=== PATIENT | male | born 1955 | race Asian ===

== ENCOUNTER 2017-07-22 23:50 | Inpatient (IN) | payer OTHER ==
[~2017-07-22] VITALS: Ht 167.6 cm; Wt 69.9 kg
--- NOTE | 2017-07-22 23:55 | NUR ---
PT BIB BLS. TAKEN TO BED 2
[2017-07-23] VITALS (15 sets, daily range): BP systolic 90–132; BP diastolic 56–88
[2017-07-23] MEDS ORDERED: VANCOMYCIN 1,000 MG in DEXTROSE 5% 250 ML IV ONE (00:20)
[2017-07-23] MEDS ORDERED: LEVOFLOXACIN 750 MG/D5W PREMIX 150 ML IV ONE (00:20)
--- NOTE | 2017-07-23 00:20 | NUR ---
PT BIB AMB C/O SOB, COUGH, PALE SKIN WEAK/DIZZY A 1DAY. DX 1 WEEK AGO WITH PNA. PT CAN NOT RECALL HOME MEDS/DOSE AT THIS TIME.
[2017-07-23] MEDS ORDERED: VANCOMYCIN 1,000 MG VIAL ONE (00:23)
[2017-07-23] MEDS ORDERED: IBUPROFEN 800 MG TAB ONE (00:25)
[2017-07-23 00:48] LABS: APPEARANCE,URINE CLEAR (CLEAR); BILIRUBIN,URINE NEGATIVE (NEGATIVE); BLOOD, URINE NEGATIVE (NEGATIVE); COLOR,URINE YELLOW (YELLOW); LEUKOCYTE ESTERASE ,URINE NEGATIVE (NEGATIVE); NITRITE, URINE NEGATIVE (NEGATIVE); UGLUCOSE NEGATIVE (NEGATIVE)
--- NOTE | 2017-07-23 00:55 | NUR ---
PT BIBA RR EVEN AND LABORED, CHEST RISE IS SYMMETRICAL, BS DIMINSHED THROUGH OUT. PER [facility] PT HAS NO PMH, NKA. WAS DIAGNOSED W/ PNUMONIA LAST WEEK AND IS TAKING ABXS. PT IS AWAKE AND ALERT X1 TO NAME, PT CONFUSED AND DELAYED SPEECH.
--- NOTE | 2017-07-23 01:01 | NUR ---
BLOOD SENT TO LAB, O2 3L VIA N/C ON.
--- NOTE | 2017-07-23 01:18 | NUR ---
Patient appears to be resting comfortably in bed. Vital Signs within normal limits. Respirations even and unlabored.
--- NOTE | 2017-07-23 01:23 | NUR ---
PT SENT TO CT WITH TECH AAOX4 AT THIS TIME.
[2017-07-23 01:32] LABS: ANION GAP 16.3 (8-16); CREATININE 1.2 mg/dL (0.7-1.3); POTASSIUM 4.3 mmol/L (3.5-5.1); TOTAL BILIRUBIN 0.6 mg/dL (0.0-1.0)
[2017-07-23 01:33] LABS: ALBUMIN 1.5 g/dL (3.4-5.0)
[2017-07-23 01:35] LABS: MEAN CORPUSCULAR HEMOGLOBIN 32 pg (27-31); MEAN CORPUSCULAR HGB CONC 35 g/dL (33-37); MEAN CORPUSCULAR VOLUME 91 fL (80-94); RED BLOOD CELL COUNT(AUTO) 1.34 MIL/uL (4.20-6.10); RED CELL DISTRIBUTION WIDTH 13.8 % (11.6-13.7)
[2017-07-23 01:36] LABS: HEMOGLOBIN 4.3 g/dL (12.0-18.0)
[2017-07-23 01:37] LABS: HEMATOCRIT 12.2 % (36-52); PLATELET COUNT (AUTO) 535 K/uL (140-450); WHITE BLOOD COUNT (AUTO) 24.1 K/uL (4.8-10.8)
[2017-07-23 01:38] LABS: LYMPHOCYTES % (MANUAL) 7 % (20-46); MONOCYTES % (MANUAL) 4 % (5-12)
[2017-07-23] MEDS ORDERED: NACL 0.9% 1,000 ML IV ONE ×2 (02:00→03:20)
[2017-07-23] MEDS ORDERED: FAMOTIDINE 20 MG/2 ML VIAL IVP ONE (02:00)
[2017-07-23] MEDS ORDERED: NACL 0.9% 2,000 ML IV ONE (02:55)
[2017-07-23] MEDS ORDERED: MORPHINE SULFATE 2 MG/ML SYR IVP PRN (03:00)
[2017-07-23] MEDS ORDERED: ACETAMINOPHEN 325 MG TAB PO PRN (03:00)
[2017-07-23] MEDS ORDERED: ONDANSETRON 4 MG/2 ML VIAL IVP PRN (03:00)
[2017-07-23] MEDS ORDERED: LORazepam 2 MG/ML VIAL IVP PRN (03:00)
[2017-07-23] MEDS ORDERED: HYDROcodone/APAP 5/325 MG 1 TAB TAB PO PRN ×2 (03:00)
--- NOTE | 2017-07-23 03:10 | NUR ---
PT ON ICU HOLD IN ER PRE HOUSE NEEL MCNEAL.
[2017-07-23 03:44] LABS: PROTHROMBIN TIME 10.7 secs (10.8-13.4)
[2017-07-23 04:00] LABS: BARBITURATE, URINE NEG. ng/ml (NEG <=200); BENZODIAZEPINE, URINE NEG. ng/mL (NEG <=200); CANNABINOID, URINE NEG. ng/mL (NEG <=50); COCAINE, URINE NEG. ng/mL (NEG <=300); OPIATE, URINE POS. ng/mL (NEG <=2000); PHENCYCLIDINE SCREEN,URINE NEG. ng/mL (NEG <=25)
--- NOTE | 2017-07-23 04:30 | NUR ---
TRANSFUSION OF PACKED CELLS STARTED, VSS
--- NOTE | 2017-07-23 04:30 | NUR ---
Consent signed per POLICY agreeing to administration of blood. Blood has been type and crossmatched. Blood sent from blood bank. Information on unit of blood checked against patient wristband at bedside by two nurses. All information matches. Patient or responsible green party informed of potential complications associated with blood transfusion. Informed of possible transfusion reaction symptoms. Aware of need to notify nurse at once of itching, shortness of breath, flushing, feeling of impending doom, or other symptoms not previously present. Vital signs taken within 5 minutes prior to initiation of transfusion. RN will remain with patient for first 15 minutes of transfusion at which time vital signs will be re-assessed.
--- NOTE | 2017-07-23 05:30 | NUR ---
PT IS RESTING COMFORTABLE IN BED, NO REACTIONS TO BLOOD TRANSFUSION NOTED, VSS STABLE.
--- NOTE | 2017-07-23 06:00 | NUR ---
PT RESTING COMFORTABLE IN BED, WILL CONTINUE TO MONITOR.
[2017-07-23] MEDS: NACL 0.9% 1,000 ML IV SCH ×3 (06:26→17:00)
--- NOTE | 2017-07-23 07:30 | NUR ---
RECEIVED PT FROM ER VIA [employer]. A/O X2. ABLE TO VERBALIZE NEEDS. PT ON STABLE CONDITION. NO ACUTE DISTRESS. PUPLIS REACTIVE TO LIGHT. LUNGS SOUND CLEAR ON AUSCULTATION. PERIPHERAL LINES ON LEFT AC 18G, LEFT WRIST 18 G. INTACT. NS RUNNING AT 100ML/HR AND BT AT 100 ML/HR. NO REACTION R/T BT NOTED. ABDOMEN ROUND, SOFT AND NON-TENDER. ACTIVE BOWEL SOUND PRESENT ON AUSCULTATION. SKIN DRY AND WARM TO ROUCH. INTACT. DENIES PAIN AT THIS TIME. KEPT PT ON BEDSIDE MONITORING. CALL LIGHT WITHIN REACH,BED IN LOW POSITION, LOCKED. WILL CONTINUE TO MONITOR.
--- NOTE | 2017-07-23 07:30 | NUR ---
Patient will be admitted to care of DR PÉREZ. Admited to ICU. Will go to room 4. Belongings list completed. Report to MIGUELITO. BLOOD PRODUCT TO FINISH INFUSING ON FLOOR, PT HAS NO SIGNS OF REACTION TO BLOOD PRODUCT ON ADMISSION.
[2017-07-23] MEDS: IPRATROPIUM 0.02% 0.5 MG/2.5 ML NEBU IH SCH ×3 (08:03→19:44)
[2017-07-23] MEDS: ALBUTEROL 0.083% 2.5 MG/3 ML NEBU IH SCH ×3 (08:03→19:44)
--- NOTE | 2017-07-23 08:20 | NUR ---
PATIENT HAS BEEN SCREENED AND CATEGORIZED MODERATE NUTRITION RISK. PATIENT WILL BE SEEN WITHIN 3-5 DAYS OF ADMISSION. 07/25/17-07/27/[address]
--- NOTE | 2017-07-23 08:22 | NUR ---
BT STARTED. PT ON STABLE CONDITION. T 97.7, P 87 R 18 BP 90/61.
--- NOTE | 2017-07-23 08:37 | NUR ---
PT ON STABLE CONDITION. NO RESPIRATORY DISTRESS. NO BT REACTION NOTED. NO CAHNGE IN LOC. T 97.4 P 87 R 16 BP 94/68. WILL CONTINUE TO MONITOR.
--- NOTE | 2017-07-23 08:52 | NUR ---
PT RESTING IN BED COMFORTABLY. DENIES PAIN. NO REACTION R/T BT NOTED. NO RESPIRATORY DISTRESS NOTED. NO CHANGE IN LOC. VS T 97.6 P 86 R 17 BP 99/56. ON CONTINUOUS MONITORING.
[2017-07-23] MEDS: PANTOPRAZOLE 40 MG INJ VIAL IVP SCH ×2 (09:07→22:09)
--- NOTE | 2017-07-23 10:40 | NUR ---
DR. GRIGGS AND TEAM IN FOR ULTRASOUND GUIDED THORACENTESIS. UNABLE TO DO THE PROCEDURE BECAUSE OF NOT ENOUGH FLUID IN RIGHT LUNG AND NO FLUID ON LEFT LUNG. KEPT PT ON COMFORTABLE POSITION. NO C/O SOB, NO CHEST PAIN. NO RESPIRATORY DISTRESS NOTED. PT ON BT. NO REACTION R/T BT NOTED. PT ON CONTINUOUS MONITORING.
--- NOTE | 2017-07-23 11:10 | NUR ---
SEEN BY DR. ABDALLA. WILL FOLOW UP ON ORDER.
[2017-07-23] MEDS: AMPICILLIN/SULBACTAM 3 GM in NACL 0.9% 100 ML IV SCH ×3 (12:54→23:47)
[2017-07-23] MEDS: SENNA 8.6 MG TAB PO SCH ×2 (13:31→16:37)
--- NOTE | 2017-07-23 13:32 | NUR ---
ADMINISTERED MEDICATION PER ORDER. TOLERATING WELL. NO RESPIRATORY DISTRESS. VS WNL. NO CHANGE IN LOC. SON AT BEDSIDE. WILL CONTINUE TO MONITOR.
[2017-07-23 15:04] LABS: EOSINOPHILS # (AUTO) 0.1 K/uL (0-0.4); EOSINOPHILS % (AUTO) 0.3 % (0.0-4.0)
[2017-07-23 15:07] LABS: BASOPHILS % (AUTO) 0.1 % (0.0-2.0); MEAN CORPUSCULAR HEMOGLOBIN 30 pg (27-31); MEAN CORPUSCULAR HGB CONC 34 g/dL (33-37); MEAN CORPUSCULAR VOLUME 89 fL (80-94); MONOCYTES # (AUTO) 0.6 K/uL (0.8-1.0); MONOCYTES % (AUTO) 3.3 % (1.7-9.3); NEUTROPHILS # (AUTO) 17.5 K/uL (1.8-7.7); NEUTROPHILS % (AUTO) 91.3 % (42.2-75.2); PLATELET COUNT (AUTO) 477 K/uL (140-450); RED BLOOD CELL COUNT(AUTO) 2.34 MIL/uL (4.20-6.10); RED CELL DISTRIBUTION WIDTH 14.7 % (11.6-13.7); WHITE BLOOD COUNT (AUTO) 19.2 K/uL (4.8-10.8)
--- NOTE | 2017-07-23 15:21 | NUR ---
CM NOTE INITIAL REVIEW FAXED TO [facility] (FAX# [phone], ATTN: GATITO #[phone]) AND [facility] (FAX# [phone], C: [phone])
--- NOTE | 2017-07-23 16:00 | NUR ---
PT RESTING IN BED, AWAKE. NO RESPIRATORY DISTRESS NOTED. SR ON MONITOR. NO CHANGE IN LOC. WILL CONTINUE TO MONITOR.
[2017-07-23 16:31] LABS: CREATINE KINASE MB 0.9 ng/mL (0-3.6)
--- NOTE | 2017-07-23 18:20 | NUR ---
SEEN BY DR. KAPADIA. WILL FOLLOW UP ON ORDER.
--- NOTE | 2017-07-23 18:48 | NUR ---
PT RESTING IN BED COMFORTABLY. NO RESPIRATORY DISTRESS. NO CHANGE IN LOC. ON O2 AT 2 LTR/MIN VIA NC. SPO2 99%. FAMILY AT BEDSIDE. WILL CONTINUE TO MONITOR.
--- NOTE | 2017-07-23 19:30 | NUR ---
REPORT GIVEN TO NOC SHIFT RN FOR CONTINUITY OF CARE. PT ON STABLE CONDITION.
--- NOTE | 2017-07-23 19:31 | NUR ---
RECEIVED REPORT FROM AM SHIFT, ABBIE FARLEY. INITIAL ASSESSMENT COMPLETED. ALERT AWAKE ORIENTED. ATTACHED TO VEGETABLE PACKER, PULSE OXIMETER. 02 @ 3LPM VIA NASAL CANNULA AT THIS TIME. IVF ACCESS AT LEFT AC 18G IVF INFUSING AND LEFT WRIST 18G, ON GOING BLOOD TRANSFUSION. SCDS IN PLACE. BED IN LOW POSITION, SAFETY MEASURE ENSURE. CALL LIGHT WITHIN REACH. WILL CONTINUE TO MONITOR.
--- NOTE | 2017-07-23 20:15 | NUR ---
US TECH AT BEDSIDE. NEPHEW AT BEDSIDE.
--- NOTE | 2017-07-23 21:00 | NUR ---
FAMILY AT BEDSIDE, SON AT BEDSIDE UPDATED OF PATIENT'S CONDITION.
--- NOTE | 2017-07-23 21:30 | NUR ---
DR. MEDINA AT BEDSIDE, EVALUATING PATIENT.
--- NOTE | 2017-07-23 22:00 | NUR ---
PT HAD SMALL AMOUNT OF BLACK STOOL. WILL CONTINUE TO MONITOR.
[2017-07-23] MEDS: LACTULOSE 20 GM/30 ML UDC PO SCH (22:10)
--- NOTE | 2017-07-23 22:13 | NUR ---
3RD UNIT OF BLOOD TRANSFUSION COMPLETED. WILL START 4TH UNIT OF BLOOD TRANSFUSION.
--- NOTE | 2017-07-23 22:30 | NUR ---
4TH UNIT OF BLOOD TRANSFUSION STARTED VERIFIED TOGETHER WITH CHARGE NURSE, WILL CONTINUE TO MONITOR. PT HAD LARGE AMOUNT OF BLACK STOOL. WILL CONTINUE TO MONITOR.
[2017-07-24] VITALS (15 sets, daily range): BP systolic 98–130; BP diastolic 31–77
[2017-07-24] MEDS: LEVOFLOXACIN 500 MG/D5W PREMIX 100 ML IV SCH (00:58)
[2017-07-24] MEDS: IPRATROPIUM 0.02% 0.5 MG/2.5 ML NEBU IH SCH ×3 (01:00→13:08)
[2017-07-24] MEDS: ALBUTEROL 0.083% 2.5 MG/3 ML NEBU IH SCH ×3 (01:00→13:08)
--- NOTE | 2017-07-24 02:05 | NUR ---
BLOOD TRANSFUSION COMPLETED. NO SIGNS OF DISTRESS NOTED. PT RESTING. WILL CONTINUE TO MONITOR.
[2017-07-24 04:50] LABS: HEMATOCRIT 27.6 % (36-52); HEMOGLOBIN 9.1 g/dL (12.0-18.0); MEAN CORPUSCULAR HEMOGLOBIN 30 pg (27-31); MEAN CORPUSCULAR HGB CONC 33 g/dL (33-37); MEAN CORPUSCULAR VOLUME 90 fL (80-94); PLATELET COUNT (AUTO) 437 K/uL (140-450); RED BLOOD CELL COUNT(AUTO) 3.07 MIL/uL (4.20-6.10); RED CELL DISTRIBUTION WIDTH 14.2 % (11.6-13.7); WHITE BLOOD COUNT (AUTO) 20.3 K/uL (4.8-10.8)
--- NOTE | 2017-07-24 05:15 | NUR ---
PT REFUSED MORNING CARE. HE SAID, "I AM OK."
[2017-07-24] MEDS: AMPICILLIN/SULBACTAM 3 GM in NACL 0.9% 100 ML IV SCH (05:39)
[2017-07-24 06:39] LABS: LYMPHOCYTES % (MANUAL) 3 % (20-46); MONOCYTES % (MANUAL) 5 % (5-12)
[2017-07-24 06:54] LABS: ALBUMIN 1.5 g/dL (3.4-5.0); ANION GAP 15.4 (8-16); CARBON DIOXIDE 22.6 mmol/L (21-32); CREATININE 0.8 mg/dL (0.7-1.3); TOTAL BILIRUBIN 0.7 mg/dL (0.0-1.0)
[2017-07-24 07:05] LABS: CREATINE KINASE MB 2.4 ng/mL (0-3.6)
--- NOTE | 2017-07-24 07:12 | NUR ---
REPORT GIVEN TO BEST SQUIRES RN FOR CONTINUITY OF CARE. NO SIGNS OF DISTRESS NOTED AT THIS TIME.
--- NOTE | 2017-07-24 08:00 | NUR ---
PATIENT IS GOING TO HAVE EGD TODAY, AND IS NPO THIS MORNING. ON ASSESSMENT PATIENT HAS SLIGHT PAIN LEFT LOWER CHEST, AND RECEIVING BREATHING TX. PAIN RESOLVES AFTER BREATHING TX. RAMON TANNER RN
--- NOTE | 2017-07-24 09:30 | NUR ---
PATIENT SON AT BEDSIDE, AND PATIENT INCONT STOOL, CLEANED, FULL BATH, AND COMPLETE LINEN CHANGE. PATIENT SBP 77, AND HOB LOWERED, AND RETAKEN, AND SBP TO 98. RAMON TANNER RN
[2017-07-24 09:37] LABS: MAGNESIUM 2.2 mg/dL (1.8-2.4)
[2017-07-24] MEDS: PANTOPRAZOLE 40 MG INJ VIAL IVP SCH ×2 (09:52→20:41)
[2017-07-24] MEDS: SENNA 8.6 MG TAB PO SCH (09:52)
[2017-07-24] MEDS: NACL 0.9% 1,000 ML IV SCH ×2 (09:53→22:45)
[2017-07-24] MEDS: LACTULOSE 20 GM/30 ML UDC PO SCH ×2 (09:53→20:45)
--- NOTE | 2017-07-24 10:00 | NUR ---
PATIENT RESTING QUIETLY IN BED WITH SON AT BEDSIDE. NO CO PAIN. RAMON TANNER RN
--- NOTE | 2017-07-24 12:00 | NUR ---
PATIENT RESTING QUIETLY IN BED, VSS, AFEBRILE. SR ON MONITOR WITHOUT ECTOPY. NPO FOR EGD PROCEDURE. RAMON TANNER RN
[2017-07-24] MEDS ORDERED: MIDAZOLAM 2 MG/2 ML VIAL ONE ×2 (13:48)
[2017-07-24] MEDS ORDERED: diphenhydrAMINE 50 MG/ML VIAL ONE (13:48)
[2017-07-24] MEDS ORDERED: fentaNYL 0.05 MG/ML VIAL ONE (13:48)
--- NOTE | 2017-07-24 14:37 | NUR ---
GI PROCEDURE ENDOSCOPY STARTED, DR ABDALLA AT BEDSIDE - VSS, SR ON MONITOR. RESP EVEN AND UNLABORED WITHOUT DISTRESS. RAMON TANNER RN
[2017-07-24] MEDS ORDERED: VANCOMYCIN PER PHARMACY MC PRN (14:55)
--- NOTE | 2017-07-24 14:55 | NUR ---
PROCEDURE COMPLETE, AND PATIENT WITH STOOL INCONT, COMPLETE BATH, AND LINENS CHANGED. 02 2L NC. HE IS SEDATED, AND SOMEWHAT CONFUSED. NO CO PAIN. RAMON TANNER RN
--- NOTE | 2017-07-24 15:30 | NUR ---
PATIENT FAMILY AT BEDSIDE, AND UPDATED ON PRESENT CONDITION, AND THAT PROCEDURE COMPLETE AND THAT DR ABDALLA WILL GIVE THEM FURTHER DETAILED INFORMATION REGARDING GI ISSUES. RAMON TANNER RN
--- NOTE | 2017-07-24 16:35 | NUR ---
DR SANTIAGO VISITS PATIENT CONFERS WITH FAMILY AT BEDSIDE, AND ORDERS WRITTEN. RAMON TANNER RN
--- NOTE | 2017-07-24 16:52 | NUR ---
PATIENT INCONT STOOL, AND COMPLETE BATH, AND LINEN CHANGED. RAMON TANNER RN
--- NOTE | 2017-07-24 17:27 | NUR ---
FAXED CONCURRENT REVIEW TO [facility] [phone] PHONE GATITO [phone]
--- NOTE | 2017-07-24 19:30 | NUR ---
PATIENT TRANSFERRED TO [address] AND REPORT ENDORSED TO THE RN RECEIVING THE PATIENT BY ASAF LEIVACERTIFIED ALCOHOL DRUG COUNSELOR NURSE. RAMON TANNER RN
--- NOTE | 2017-07-24 19:35 | NUR ---
RECEIVED REPORT AT BEDSIDE FROM ICU NURSE. PT A/OX4, ON 2L O2 VIA NASAL CANNULA. PT IS ON BEDREST. PT HAS IV TO LEFT FOREARM 18G, AND LEFT WRIST 18G. SKIN INTACT. SAFETY PRECAUTIONS IN PLACE. UPDATED BOARD. VITAL SIGNS WITHIN NORMAL LIMITS. PT IN STABLE CONDITION, NO SIGNS OF DISTRESS NOTED. BED IN LOW POSITION, CALL LIGHT WITHIN REACH. WILL CONTINUE TO MONITOR.
[2017-07-24] MEDS: FERROUS GLUCONATE 324 MG TAB PO SCH (20:00)
[2017-07-24] MEDS: VANCOMYCIN 1,250 MG in DEXTROSE 5% 250 ML IV SCH (20:00)
--- NOTE | 2017-07-24 20:00 | NUR ---
DID NOT ADMINISTER VANCOCIN OR UNASYN BECAUSE MEDICATIONS WERE SCHEDULED AT 17:00 AND 18:00 AND PT DID NOT ARRIVE TO UNIT UNTIL 19:35.
[2017-07-24] MEDS: SUCRALFATE 1 GM TAB PO SCH (20:41)
--- NOTE | 2017-07-24 20:45 | NUR ---
ADMINISTERED SCHEDULED MEDICATIONS, PT TOLERATED WELL. PT IN STABLE CONDITION, NO SIGNS OF DISTRESS NOTED. BED IN LOW POSITION, CALL LIGHT WITHIN REACH. WILL CONTINUE TO MONITOR.
[2017-07-24] MEDS: ALBUTEROL SULFATE/IPRATROPIU 3 ML SOL IH SCH (21:05)
[2017-07-25] VITALS (7 sets, daily range): BP systolic 115–130; BP diastolic 69–89
[2017-07-25] MEDS: SULBACTAM IV SCH ×5 (00:09→23:22)
[2017-07-25] MEDS: DEXTROSE 5% IV SCH ×5 (00:09→23:22)
[2017-07-25] MEDS: AMPICILLIN IV SCH ×5 (00:09→23:22)
--- NOTE | 2017-07-25 00:10 | NUR ---
SCHEDULED IVPB ABX NOW INFUSING, PT TOLERATING WELL. VITAL SIGNS WITHIN NORMAL LIMITS. PT IN STABLE CONDITION, NO SIGNS OF DISTRESS NOTED. BED IN LOW POSITION, CALL LIGHT WITHIN REACH. WILL CONTINUE TO MONITOR.
[2017-07-25] MEDS: ALBUTEROL SULFATE/IPRATROPIU 3 ML SOL IH SCH ×4 (00:58→18:55)
[2017-07-25] MEDS: LEVOFLOXACIN 500 MG/D5W PREMIX 100 ML IV SCH (01:00)
--- NOTE | 2017-07-25 01:00 | NUR ---
LEVAQUIN NOW INFUSING, PT TOLERATING WELL. PT RECEIVING BREATHING TREATMENT FROM RT. PT IN STABLE CONDITION, NO SIGNS OF DISTRESS NOTED. BED IN LOW POSITION, CALL LIGHT WITHIN REACH. WILL CONTINUE TO MONITOR.
--- NOTE | 2017-07-25 04:00 | NUR ---
VITAL SIGNS WITHIN NORMAL LIMITS. PT IN STABLE CONDITION, NO SIGNS OF DISTRESS NOTED. BED IN LOW POSITION, CALL LIGHT WITHIN REACH. WILL CONTINUE TO MONITOR.
[2017-07-25] MEDS: VANCOMYCIN 1,250 MG in DEXTROSE 5% 250 ML IV SCH ×2 (05:04→16:07)
[2017-07-25 06:28] LABS: BASOPHILS # (AUTO) 0.1 K/uL (0.00-0.22); BASOPHILS % (AUTO) 0.3 % (0.0-2.0); EOSINOPHILS # (AUTO) 0.1 K/uL (0-0.4); EOSINOPHILS % (AUTO) 0.3 % (0.0-4.0); HEMATOCRIT 27.6 % (36-52); HEMOGLOBIN 8.8 g/dL (12.0-18.0); LYMPHOCYTES # (AUTO) 0.7 K/uL (2.0-11.5); LYMPHOCYTES % (AUTO) 3.8 % (20.5-51.1); MEAN CORPUSCULAR HEMOGLOBIN 29 pg (27-31); MEAN CORPUSCULAR HGB CONC 32 g/dL (33-37); MEAN CORPUSCULAR VOLUME 90 fL (80-94); MONOCYTES # (AUTO) 0.5 K/uL (0.8-1.0); MONOCYTES % (AUTO) 2.9 % (1.7-9.3); NEUTROPHILS # (AUTO) 16.9 K/uL (1.8-7.7); NEUTROPHILS % (AUTO) 92.7 % (42.2-75.2); PLATELET COUNT (AUTO) 435 K/uL (140-450); RED BLOOD CELL COUNT(AUTO) 3.06 MIL/uL (4.20-6.10); RED CELL DISTRIBUTION WIDTH 14.4 % (11.6-13.7); WHITE BLOOD COUNT (AUTO) 18.3 K/uL (4.8-10.8)
--- NOTE | 2017-07-25 07:28 | NUR ---
ENDORSED PT IN STABLE CONDITION TO DAY SHIFT RN FOR CONTINUITY OF CARE.
--- NOTE | 2017-07-25 07:30 | NUR ---
ENDORSEMENT RECEIVED FROM CABIN SUPERVISOR NURSE. PATIENT IS AWAKE, ALERT. RESPIRATION EVEN, UNLABOR ON 3L NC. SKIN DRY AND WARM. IV PATENT AND INTACT. DENIED PAIN, SOB AT THIS TIME. PLAN OF CARE WAS DISCUSSED WITH PATIENT AND FAMILY. BED AT LOW POSITION, CALL LIGHT WITHIN REACH.
[2017-07-25 07:50] LABS: ANION GAP 10.7 (8-16); CARBON DIOXIDE 24.8 mmol/L (21-32); CREATININE 0.8 mg/dL (0.7-1.3); POTASSIUM 3.5 mmol/L (3.5-5.1)
[2017-07-25] MEDS: PANTOPRAZOLE 40 MG INJ VIAL IVP SCH ×2 (08:53→21:35)
[2017-07-25] MEDS: LACTULOSE 20 GM/30 ML UDC PO SCH ×2 (09:00→21:35)
[2017-07-25] MEDS: SUCRALFATE 1 GM TAB PO SCH ×4 (09:09→21:35)
[2017-07-25] MEDS: FERROUS GLUCONATE 324 MG TAB PO SCH ×2 (09:09→16:07)
--- NOTE | 2017-07-25 10:00 | NUR ---
PATIENT IS AWAKE, ALERT. RESPIRATION EVEN, UNLABOR ON 3L NC. DENIED SOB, CP AT THIS TIME. FAMILY AT BEDSIDE. CALL LIGHT WITHIN REACH
--- NOTE | 2017-07-25 12:30 | NUR ---
PATIENT IS SLEEPING COMFORTABLY. RESPIRATION EVEN, UNLABOR ON 2L NC. DENIED SOB AT THIS TIME. MED WAS GIVEN PER ORDER. FAMILY AT BEDSIDE. CALL LIGHT WITHIN REACH
--- NOTE | 2017-07-25 16:00 | NUR ---
PATIENT IS SLEEPING COMFORTABLY. RESPIRATION EVEN, UNLABOR ON 2L NC. DENIED SOB AT THIS TIME. FAMILY AT BEDSIDE. CALL LIGHT WITHIN REACH. VS WAS TAKEN
--- NOTE | 2017-07-25 18:44 | NUR ---
PATIENT IS AWAKE, ALERT. RESPIRATION EVEN, UNLABOR ON 2L NC. DENIED SOB AT THIS TIME. IV PATENT AND INTACT. MED WAS GIVEN PER ORDER. CALL LIGHT WITHIN REACH
[2017-07-25] MEDS: NACL 0.9% 1,000 ML IV SCH (19:04)
--- NOTE | 2017-07-25 19:18 | NUR ---
RECEIVED FROM AM RN IN BED AWAKE AND WITH FAMILY MEMBERS VISITING. DJIBOUTIAN SPEAKING AND UNDERSTANDS A LITTLE BIT OF NEPALI. ABLE TO VERBALIZE SIMPLE NEEDS. PT. DX. OF PNA. AFEBRILE. CARE PLANS DISCUSSED WITH HIM. RE-ORIENTED TO CALL LIGHT USE FOR HELP AND IF WITH PAIN.
--- NOTE | 2017-07-25 19:18 | NUR ---
ENDORSEMENT GIVEN TO THE BOARD HAMMER OPERATOR NURSE. PATIENT IS STABLE AT THIS TIME
[2017-07-25 22:34] LABS: FERRITIN 1611 ng/mL (30-400)
--- NOTE | 2017-07-25 22:46 | NUR ---
SLEEPING AT THIS TIME. NO RESTLESSNESS. SON AT BEDSIDE WATCHING PT. FOR THE NIGHT. ENCOURAGED TO CALL FOR ANY PAIN HE MIGHT HAVE. TELEMETRY MONITORING.
--- NOTE | 2017-07-25 23:49 | NUR ---
AWAKE AT THIS TIME. SON STILL AT BEDSIDE AND MD SANTIAGO IN HERE TO SEE PT. WITH ORDER FOR PHYSICAL THERAPIST FOR TOMORROW.
--- NOTE | 2017-07-26 | NUR ---
SLEEPING. NO RESTLESSNESS. TELEMETRY MONITORING. CALL LIGHT WITH IN REACH. SON AT BEDSIDE WATCHING A MOVIE AT HIS OWN COMPUTER. NO COMPLAINTS DONE.
[2017-07-26] MEDS: ALBUTEROL SULFATE/IPRATROPIU 3 ML SOL IH SCH ×4 (01:04→19:10)
[2017-07-26] MEDS: LEVOFLOXACIN 500 MG/D5W PREMIX 100 ML IV SCH (01:29)
[2017-07-26 04:00] VITALS: BP 130/78
--- NOTE | 2017-07-26 04:00 | NUR ---
PT. HAD A BIG LIQUIDY STOOL. KEPT CLEAN AND DRY. CALL LIGHT WITH IN REACH. NO SOB. TELEMETRY MONITORING. ENCOURAGED TO CALL FOR ANY HELP THEY NEED OR IF IN PAIN.
[2017-07-26 04:21] LABS: BASOPHILS # (AUTO) 0.3 K/uL (0.00-0.22); BASOPHILS % (AUTO) 1.9 % (0.0-2.0); EOSINOPHILS % (AUTO) 0.2 % (0.0-4.0); HEMATOCRIT 28.5 % (36-52); HEMOGLOBIN 9.2 g/dL (12.0-18.0); LYMPHOCYTES # (AUTO) 0.7 K/uL (2.0-11.5); LYMPHOCYTES % (AUTO) 3.9 % (20.5-51.1); MEAN CORPUSCULAR HEMOGLOBIN 29 pg (27-31); MEAN CORPUSCULAR HGB CONC 32 g/dL (33-37); MEAN CORPUSCULAR VOLUME 90 fL (80-94); MONOCYTES # (AUTO) 0.4 K/uL (0.8-1.0); MONOCYTES % (AUTO) 2.4 % (1.7-9.3); NEUTROPHILS # (AUTO) 16.3 K/uL (1.8-7.7); PLATELET COUNT (AUTO) 417 K/uL (140-450); RED BLOOD CELL COUNT(AUTO) 3.18 MIL/uL (4.20-6.10); RED CELL DISTRIBUTION WIDTH 14.2 % (11.6-13.7); WHITE BLOOD COUNT (AUTO) 17.7 K/uL (4.8-10.8)
[2017-07-26 04:34] LABS: CARBON DIOXIDE 27.2 mmol/L (21-32); CREATININE 0.8 mg/dL (0.7-1.3); POTASSIUM 3.2 mmol/L (3.5-5.1)
[2017-07-26 05:02] LABS: NEUTROPHILS % (AUTO) 91.6 % (42.2-75.2)
[2017-07-26] MEDS: VANCOMYCIN 1,250 MG in DEXTROSE 5% 250 ML IV SCH (05:29)
[2017-07-26] MEDS: SULBACTAM IV SCH ×3 (05:30→18:54)
[2017-07-26] MEDS: DEXTROSE 5% IV SCH ×3 (05:30→18:54)
[2017-07-26] MEDS: AMPICILLIN IV SCH ×3 (05:30→18:54)
--- NOTE | 2017-07-26 06:34 | NUR ---
PT. AWAKE AT THIS TIME. SON LEFT AND CAME IN TO TAKE OVER. NO COMPLAINTS DONE. TELEMETRY MONITORING.
--- NOTE | 2017-07-26 07:18 | NUR ---
AWAKE AND ALERT. ENDORSED TO THE NEXT RN FOR CONTINUITY OF CARE.
--- NOTE | 2017-07-26 07:20 | NUR ---
ENDORSEMENT RECEIVED FROM FIRE APPARATUS SPRINKLER INSPECTOR NURSE. PATIENT IS AWAKE, ALERT. RESPIRATION EVEN, UNLABOR ON 2L NC. SKIN DRY AND WARM. DENIED SOB AT THIS TIME. IV PATENT AND INTACT. PLAN OF CARE WAS DISCUSSED WITH PATIENT AND FAMILY. BED AT LOW POSITION, CALL LIGHT WITHIN REACH.
[2017-07-26 08:00] VITALS: BP 128/75
[2017-07-26] MEDS: FERROUS GLUCONATE 324 MG TAB PO SCH ×2 (08:32→16:32)
[2017-07-26] MEDS: SUCRALFATE 1 GM TAB PO SCH ×4 (08:32→20:44)
[2017-07-26] MEDS: PANTOPRAZOLE 40 MG INJ VIAL IVP SCH ×2 (08:32→20:44)
[2017-07-26] MEDS: LACTULOSE 20 GM/30 ML UDC PO SCH (08:33)
--- NOTE | 2017-07-26 09:33 | NUR ---
PATIENT IS AWAKE, ALERT. RESPIRATION EVEN, UNLABOR ON 2L. MED WAS GIVEN PER ORDER. DENIED PAIN, SOB AT THIS TIME. CALL LIGHT WITHIN REACH
--- NOTE | 2017-07-26 10:37 | NUR ---
DR. NAVARRO WAS PAGED REGARDING PATIENT'S POTASSIUM LEVEL 3.3. WILL CONTINUE TO FOLLOW UP
[2017-07-26] MEDS ORDERED: POTASSIUM CHLORIDE 10 MEQ TABER PO PRN (11:15)
--- NOTE | 2017-07-26 11:18 | NUR ---
DR. SANTIAGO WAS MADE MEYER OF PATIENT'S POTASSIUM LEVEL 3.2, CA 7.5. WILL MEDICATE PER ORDER
--- NOTE | 2017-07-26 11:30 | NUR ---
PATIENT IS AWAKE, ALERT. RESPIRATION EVEN, UNLABOR ON 2L NC. DENIED SOB, DIZZINESS AT THIS TIME. FAMILY AT BEDSIDE. VS WAS TAKEN. MED WAS GIVEN PER ORDER. CALL LIGHT WITHIN REACH
[2017-07-26 12:00] VITALS: BP 130/71
[2017-07-26] MEDS: NACL 0.9% 1,000 ML IV SCH (13:04)
[2017-07-26] MEDS ORDERED: CALCIUM GLUCONATE 10% 1,000 MG in NACL 0.9% 50 ML IV SCH (14:00)
--- NOTE | 2017-07-26 14:14 | NUR ---
PATIENT AWAKE, ALERT. RESPIRATION EVEN, UNLABOR ON 2L NC. DENIED SOB AT THIS TIME. NOTIFIED DR. SANTIAGO FOR NICOTINE PATCH REQUEST. WILL CONTINUE TO FOLLOW UP
--- NOTE | 2017-07-26 15:49 | NUR ---
PATIENT IS AWAKE, ALERT. RESPIRATION EVEN, UNLABOR ON 2 L NC. DENIED OF SOB AT THIS TIME. CALL LIGHT WITHIN REACH.
[2017-07-26 16:00] VITALS: BP 138/71
[2017-07-26] MEDS: VANCOMYCIN 1,500 MG in DEXTROSE 5% 500 ML IV SCH (16:32)
--- NOTE | 2017-07-26 17:04 | NUR ---
DR. LIMA WAS MADE AWARE OF PATIENT ABNORMAL EKG, ADVISED TO FOLLOW UP WITH CONSERVATION POLICY ANALYST, ORDER WAS PLACED
--- NOTE | 2017-07-26 17:42 | NUR ---
PATIENT IS AWAKE, ALERT, EATING DINNER. RESPIRATION EVEN, UNLABOR ON 2L NC. DENIED SOB, PAIN AT THIS TIME. IV PATENT AND INTACT. CALL LIGHT WITHIN REACH.
[2017-07-26] MEDS: NICOTINE TRANSD SYS 14 MG/24 HR PATCH TD SCH (18:58)
--- NOTE | 2017-07-26 19:18 | NUR ---
ENDORSEMENT GIVEN TO THE CRM DYNAMICS DEVELOPER NURSE. PATIENT IS STABLE AT THIS TIME
--- NOTE | 2017-07-26 19:19 | NUR ---
RECEIVED REPORT FROM DAY NURSE, PT IN STABLE CONDITION. NO S/S OF DISTRESS NOTED. PT IS AAOX4, ON 2L O2 VIA NC. SKIN IS INTACT, IV TO THE LAC 18G AND L WRIST 18G PATENT AND INTACT, INFUSING WELL. SKIN IS WARM AND DRY TO TOUCH, COLOR WNL. ALL SAFETY PRECAUTIONS MET, CALL LIGHT WITHIN REACH, BOARD UPDATED, WILL CONTINUE TO MONITOR
[2017-07-26 20:00] VITALS: BP 142/75
[2017-07-27] VITALS: BP 135/83
[2017-07-27] MEDS: SULBACTAM IV SCH ×3 (00:16→12:44)
[2017-07-27] MEDS: DEXTROSE 5% IV SCH ×3 (00:16→12:44)
[2017-07-27] MEDS: AMPICILLIN IV SCH ×3 (00:16→12:44)
[2017-07-27] MEDS: ALBUTEROL SULFATE/IPRATROPIU 3 ML SOL IH SCH ×4 (00:26→19:03)
[2017-07-27] MEDS: LEVOFLOXACIN 500 MG/D5W PREMIX 100 ML IV SCH (01:54)
[2017-07-27 04:00] VITALS: BP 136/84
[2017-07-27] MEDS: VANCOMYCIN 1,500 MG in DEXTROSE 5% 500 ML IV SCH ×2 (04:55→16:37)
[2017-07-27 07:00] LABS: BASOPHILS % (AUTO) 0.2 % (0.0-2.0); EOSINOPHILS # (AUTO) 0.1 K/uL (0-0.4); EOSINOPHILS % (AUTO) 0.9 % (0.0-4.0); HEMATOCRIT 27.3 % (36-52); HEMOGLOBIN 9.3 g/dL (12.0-18.0); LYMPHOCYTES # (AUTO) 0.6 K/uL (2.0-11.5); LYMPHOCYTES % (AUTO) 3.8 % (20.5-51.1); MEAN CORPUSCULAR HEMOGLOBIN 31 pg (27-31); MEAN CORPUSCULAR HGB CONC 34 g/dL (33-37); MEAN CORPUSCULAR VOLUME 90 fL (80-94); MONOCYTES # (AUTO) 0.6 K/uL (0.8-1.0); MONOCYTES % (AUTO) 3.6 % (1.7-9.3); NEUTROPHILS # (AUTO) 14.4 K/uL (1.8-7.7); NEUTROPHILS % (AUTO) 91.5 % (42.2-75.2); PLATELET COUNT (AUTO) 404 K/uL (140-450); RED BLOOD CELL COUNT(AUTO) 3.03 MIL/uL (4.20-6.10); RED CELL DISTRIBUTION WIDTH 14.6 % (11.6-13.7); WHITE BLOOD COUNT (AUTO) 15.7 K/uL (4.8-10.8)
--- NOTE | 2017-07-27 07:15 | NUR ---
PT TAKEN TO CT IN STABLE CONDITION. NO S/S OF DISTRESS NOTED. IV INTACT
--- NOTE | 2017-07-27 07:30 | NUR ---
RECEIVED REPORT FROM METEOROLOGIST LIAISON NURSE, PT IN STABLE CONDITION. NO S/S OF DISTRESS NOTED. PT IS AAOX4, ON 2L O2 VIA NC. SKIN IS INTACT, IV TO THE L AC 18G AND L WRIST 18G PATENT AND INTACT, INFUSING WELL. PT DENIES ANY PAIN AT THIS TIME. ALL SAFETY PRECAUTIONS MET, CALL LIGHT WITHIN REACH, BOARD UPDATED, WILL CONTINUE TO MONITOR
--- NOTE | 2017-07-27 07:35 | NUR ---
PT BACK FROM CT. NEW BEDDING GIVEN, CONNECTED TO IV, PATENT AND INTACT
--- NOTE | 2017-07-27 07:43 | NUR ---
GAVE REPORT TO DAY NURSE, PT IN STABLE CONDITION. NO S/S OF DISTRESS NOTED
[2017-07-27 07:48] LABS: POTASSIUM 3.3 mmol/L (3.5-5.1)
[2017-07-27 07:49] LABS: ANION GAP 11.9 (8-16); CARBON DIOXIDE 26.4 mmol/L (21-32); CREATININE 0.8 mg/dL (0.7-1.3)
[2017-07-27 08:00] VITALS: BP 136/77
--- NOTE | 2017-07-27 08:30 | NUR ---
WENT TO THE ROOM FOUND PT STANDING NEXT TO HIS BED AND POOPED ON THE FLOOR. CLEANED AND NOTIFIED EVS.
--- NOTE | 2017-07-27 08:30 | NUR ---
CLEAN PT AND HELPED PT BACK TO BED. NO S/S OF DISTRESS NOTED.
[2017-07-27] MEDS: SUCRALFATE 1 GM TAB PO SCH ×4 (08:43→21:07)
[2017-07-27] MEDS: FERROUS GLUCONATE 324 MG TAB PO SCH ×2 (08:44→16:38)
[2017-07-27] MEDS: PANTOPRAZOLE 40 MG INJ VIAL IVP SCH (08:44)
[2017-07-27] MEDS: NICOTINE TRANSD SYS 14 MG/24 HR PATCH TD SCH (08:45)
[2017-07-27] MEDS ORDERED: NICOTINE TRANSD SYS 14 MG/24 HR PATCH TD SCH (09:00)
--- NOTE | 2017-07-27 10:20 | NUR ---
PT AMBULATE WITH PHYSICAL THERAPY.
--- NOTE | 2017-07-27 10:30 | NUR ---
PAGED DR NAVARRO REGARDING K 3.3, WAITING FOR CALL BACK.
[2017-07-27] MEDS: NACL 0.9% 1,000 ML IV SCH (11:04)
[2017-07-27 12:00] VITALS: BP 139/70
--- NOTE | 2017-07-27 12:30 | NUR ---
CM NOTE INITIAL REVIEW FAXED TO [facility] (FAX# [phone], ATTN: GATITO #[phone]) AND [facility] (FAX# [phone], C: [phone])
[2017-07-27] MEDS ORDERED: POTASSIUM CHLORIDE 10 MEQ TABER PO SCH (14:29)
--- NOTE | 2017-07-27 14:39 | NUR ---
07/27/2017 RD INITIAL ASSESSMENT COMPLETED PLEASE REFER TO NUTRITION ASSESSMENT UNDER CARE ACTIVITY FOR ESTIMATED NUTRITIONAL NEEDS. PT TO ALERT MEDICAL STAFF WHE FAMILY BROINGS OUTSIDE FOODS SO IT CAN BE OKAYED BY DOCTOR AND COUNTED IN DAILY INTAKE BY NURSING STAFF RD TO FOLLOW-UP IN 3-5 DAYS PATIENT IS MODERATE RISK. JAE MURRAY RD
[2017-07-27] MEDS ORDERED: POTASSIUM CHLORIDE 20% 40 MEQ/15 ML UDC PO SCH (14:41)
--- NOTE | 2017-07-27 14:45 | NUR ---
DR LIMA CALLED BACK. ORDER RECEIVED TO CORRECT K 3.3. WILL PUT IN THE COMPUTER.
[2017-07-27 16:00] VITALS: BP 134/88
--- NOTE | 2017-07-27 17:56 | NUR ---
PT IS MORE ALERT AT THIS TIME. TRY TO FEED DINNER TO PT. PT REFUSED BY SHAKING HIS HEAD AND SHUT HIS MOUTH. WILL TRY AT LATER TIME. Addendum: 07/27/17 at 1758 by Tre Arana RN PLEASE DISCARD, DOCUMENTED UNDER WRONG PATIENT.
[2017-07-27] MEDS: AMPICILLIN/SULBACTAM 3 GM in NACL 0.9% 100 ML IV SCH ×2 (18:46→23:37)
--- NOTE | 2017-07-27 19:29 | NUR ---
ENDORSED PT IN STABLE CONDITION TO MINE FOREMAN NURSE.
--- NOTE | 2017-07-27 19:30 | NUR ---
RECEIVED BEDSIDE REPORT FROM DAY SHIFT NURSE ROSANA RN, PT STABLE, NO DISTRESS NOTED,IV TO LAC SL AND L WRIST RUNNING AMPICILLIN @100ML/HR, INFUSING WELL, PT ON 2LPM O2 VIA NC, NO SOB, INITIAL ASSESSMENT DONE, ALL SAFETY PRECAUTION MET, CALL LIGHT WITHIN REACH, FAMILY BY BEDSIDE, WILL CONTINUE TO MONITOR.
[2017-07-27 20:00] VITALS: BP 114/83
--- NOTE | 2017-07-27 21:07 | NUR ---
DUE MEDICATION GIVEN, PT TOLERATED WELL, NO DISTRESS NOTED, CALL LIGHT WITHIN REACH, WILL CONTINUE TO MONITOR.
--- NOTE | 2017-07-27 23:38 | NUR ---
DUE MEDICATION GIVEN, PT STATED HAVING PAIN, SON TRANSLATED, PAIN OF 3/10, ON THE CHEST AREA, ESPECIALLY WHEN COUGHING, PAIN MEDICATION GIVEN, PT TOLERATED WELL, NO DISTRESS NOTED, CALL LIGHT WITHIN REACH, SON BY BEDSIDE, WILL CONTINUE TO MONITOR.
[2017-07-28] VITALS: BP 134/83
[2017-07-28] MEDS: LEVOFLOXACIN 500 MG/D5W PREMIX 100 ML IV SCH (00:51)
--- NOTE | 2017-07-28 00:51 | NUR ---
DUE MEDICATION GIVEN, PT SLEEPING, NO DISTRESS NOTED, CALL LIGHT WITHIN REACH, SON BY BEDSIDE, WILL CONTINUE TO MONITOR.
[2017-07-28] MEDS: ALBUTEROL SULFATE/IPRATROPIU 3 ML SOL IH SCH ×2 (01:00→07:39)
[2017-07-28 04:07] LABS: BASOPHILS # (AUTO) 0.1 K/uL (0.00-0.22); BASOPHILS % (AUTO) 0.4 % (0.0-2.0); EOSINOPHILS # (AUTO) 0.1 K/uL (0-0.4); EOSINOPHILS % (AUTO) 0.9 % (0.0-4.0); HEMATOCRIT 28.4 % (36-52); HEMOGLOBIN 9.3 g/dL (12.0-18.0); LYMPHOCYTES # (AUTO) 0.6 K/uL (2.0-11.5); LYMPHOCYTES % (AUTO) 4.3 % (20.5-51.1); MEAN CORPUSCULAR HEMOGLOBIN 29 pg (27-31); MEAN CORPUSCULAR HGB CONC 33 g/dL (33-37); MEAN CORPUSCULAR VOLUME 89 fL (80-94); MONOCYTES # (AUTO) 0.9 K/uL (0.8-1.0); NEUTROPHILS # (AUTO) 13.1 K/uL (1.8-7.7); NEUTROPHILS % (AUTO) 88.4 % (42.2-75.2); PLATELET COUNT (AUTO) 416 K/uL (140-450); RED BLOOD CELL COUNT(AUTO) 3.21 MIL/uL (4.20-6.10); RED CELL DISTRIBUTION WIDTH 14.5 % (11.6-13.7)
[2017-07-28] MEDS: VANCOMYCIN 1,500 MG in DEXTROSE 5% 500 ML IV SCH (04:48)
--- NOTE | 2017-07-28 04:48 | NUR ---
DUE MEDICATION GIVEN, PT TOLERATED WELL, PT SLEEPING, NO DISTRESS NOTED, CALL LIGHT WITHIN REACH, WILL CONTINUE TO MONITOR.
[2017-07-28 06:53] LABS: WHITE BLOOD COUNT (AUTO) 14.8 K/uL (4.8-10.8)
[2017-07-28] MEDS: AMPICILLIN/SULBACTAM 3 GM in NACL 0.9% 100 ML IV SCH ×2 (06:53→12:37)
[2017-07-28 07:01] LABS: ANION GAP 11.5 (8-16); CARBON DIOXIDE 26.3 mmol/L (21-32); CREATININE 0.7 mg/dL (0.7-1.3); POTASSIUM 3.8 mmol/L (3.5-5.1)
--- NOTE | 2017-07-28 07:25 | NUR ---
BEDSIDE REPORT GIVEN TO DAY SHIFT NURSE MAC RN, ENDORSED PLAN OF CARE, PT STABLE, NO DISTRESS NOTED, CALL LIGHT WITHIN REACH.
--- NOTE | 2017-07-28 07:26 | NUR ---
RECEIVED REPORT FROM DEPUTY SHERIFF NURSE AT BEDSIDE FOR CONTINUITY OF CARE. PT ASLEEP, NO DISTRESS NOTED, IV TO LAC SL AND L WRIST RUNNING AMPICILLIN @200ML/HR, INFUSING WELL, PT ON 2L O2 NC, NO SOB, INITIAL ASSESSMENT DONE, ALL SAFETY PRECAUTION IN PLACE, CALL LIGHT WITHIN REACH, WILL CONTINUE TO MONITOR PATIENT.
[2017-07-28 07:38] LABS: PROTHROMBIN TIME 11.4 secs (10.8-13.4)
[2017-07-28 08:00] VITALS: BP 141/100
--- NOTE | 2017-07-28 08:35 | NUR ---
RECEIVED A CALL FROM DR. SANTIAGO ABOUT TRANSFERING THIS PATIENT TO [facility] FOR HIGHER LEVEL OF CARE. HE SAID HE ALREADY SPOKE WITH RAMON FROM ADMITTING. I CALLED RAMON FROM ADMITTING AND FAXED INFORMATION TO HIM. PER REQUEST OF DR SANTIAGO, I GAVE RAMON MUSA'S CELL PHONE NUMBER. FAXED TO [facility] [phone] PHONE [facility] [phone].
[2017-07-28] MEDS: SUCRALFATE 1 GM TAB PO SCH ×2 (08:50→12:36)
--- NOTE | 2017-07-28 08:50 | NUR ---
ADMINISTERED DUE MEDICATIONS, PATIENT TOLERATED THEM WELL. NO SIGNS OF DISTRESS NOTED, PATIENT DENIES PAIN. SAFETY PRECAUTION IN PLACE, BED ON LOWEST SETTING, CALL LIGHT WITHIN REACH. WILL CONTINUE TO MONITOR PATIENT.
[2017-07-28] MEDS: NICOTINE TRANSD SYS 14 MG/24 HR PATCH TD SCH (08:52)
[2017-07-28] MEDS ORDERED: PANTOPRAZOLE 40 MG TABEC PO SCH (09:00)
[2017-07-28] MEDS: FERROUS GLUCONATE 324 MG TAB PO SCH (09:20)
--- NOTE | 2017-07-28 10:22 | NUR ---
PATIENT IS SLEEPING, NO SIGNS OF DISTRESS NOTED, SAFETY PRECAUTION IN PLACE, BED ON LOWEST SETTING, CALL LIGHT WITHIN REACH. WILL CONTINUE TO MONITOR PATIENT.
--- NOTE | 2017-07-28 11:36 | NUR ---
SPOKE WITH GATITO FROM [facility] AND INFORMED HER OF ORDER FOR TRANSFER. SHE SAID REVIEWS JUST GO TO HER, NOT [facility]. GATITO GAVE ME AUTH FOR [facility], [id number] AUTH FOR TRANSPORT [id number]. FAXED CONCURRENT REVIEW TO HER AT [phone] PHONE GATITO [phone] CALLED [facility] AND SPOKE WITH RAMON IN ADMITTING AND I GAVE HIME THE AUTH FOR [facility]. HE SAID NO BED AT PRESENT. I ALSO SENT BACK A SIGNED COPY OF THE TRANSFER BACK AGREEMENT.
--- NOTE | 2017-07-28 12:36 | NUR ---
ADMINISTERED DUE MEDICATIONS, PATIENT TOLERATED THEM WELL. FAMILY AT BEDSIDE. EXPLAINED PLAN OF CARE TO PATIENT AND FAMILY MEMBER. PATIENT AND FAMILY VERBALIZED UNDERSTANDING. NO SIGNS OF DISTRESS NOTED, PATIENT DENIES PAIN. SAFETY PRECAUTION IN PLACE, BED ON LOWEST SETTING, CALL LIGHT WITHIN REACH. WILL CONTINUE TO MONITOR PATIENT.
--- NOTE | 2017-07-28 13:19 | NUR ---
RECEIVED A CALL FROM RAMON FROM [facility]. THE PATIENT CAN GO TO [place] ROOM [address]. UNDER DR. SANTIAGO. PHONE REPORT TO [id number]. I CALLED [facility] AND SET UP TRANSPORT FOR 2P.M. WITH JOHN. BRANDI LEIVABUSINESS TRANSFORMATION ANALYST NURSE AWARE. I CALLED DR. SANTIAGO AND INFORMED HIM OF THE ROOM AND TIME OF TRANSPORT. AUTH TRANSPORT [id number]. Addendum: 07/28/17 at 1325 by Aisha Swanson CM I CALLED GATITO FROM [facility] AND INFORMED HER.
[2017-07-28] MEDS ORDERED: PNEUMOCOCCAL VACCINE 23 MCG/0.5 ML VIAL IMVAC SCH (13:25)
[2017-07-28] MEDS ORDERED: INFLUENZA VIRUS VACCINE QUAD 0.5 ML SYR IMVAC SCH (13:25)
--- NOTE | 2017-07-28 13:46 | NUR ---
GAVE REPORT TO SHWETA LEIVA AT [facility] IN PREPARATION FOR TRANSFER OF PATIENT TO ROOM 183-B. PATIENT WILL BE TRANSPORTED BY [facility].
[2017-07-28] MEDS ORDERED: INFLUENZA VIRUS VACCINE QUAD 0.5 ML SYR IMVAC ONE (13:49)
[2017-07-28] MEDS ORDERED: PNEUMOCOCCAL VACCINE 23 MCG/0.5 ML VIAL ONE (13:50)
--- NOTE | 2017-07-28 14:00 | NUR ---
DISCHARGE INSTRUCTION AND EDUCATION GIVEN. FAMILY AT BEDSIDE. IVS REMOVED, CANNULAS INTACT. PATIENT TOLERATED THEM WELL. ID BANDS CUT. PATIENT WILL BE CHANGED INTO TRANSFER GOWN BY REVENUE CYCLE CONSULTANT AND WAIT FOR [facility] TO ARRIVE FOR TRANSPORT TO [facility].
--- NOTE | 2017-07-28 14:15 | NUR ---
PATIENT WHEELED OFF THE FLOOR IN [facility] BY [facility]. PATIENT BREATHING EVEN AND UNLABORED ON ROOM AIR. FAMILY ACCOMPANYING PATIENT. PATIENT IN STABLE CONDITION.
== END 2017-07-28 14:15 | disposition short-term general hospital (02) | DRG 710 ==
LOC: MED 23:50 → EDBEDREQSVC 07-23 03:10 → MTU 07-23 03:11 → MIC 07-23 03:18 → MTU 07-24 19:30
PROVIDERS: ADMIT Hospitalist; ATTEND Hospitalist
PROC: 30233N1 Transfusion of Nonautologous Red Blood Cells into Peripheral Vein, Percutaneous Approach (ICD-10-PCS; principal; 2017-07-23)
PROC: 0BJQ3ZZ Inspection of Pleura, Percutaneous Approach (ICD-10-PCS; 2017-07-23)
PROC: 0DB68ZX Excision of Stomach, Via Natural or Artificial Opening Endoscopic, Diagnostic (ICD-10-PCS; 2017-07-24)
PROC: 3E0234Z Introduction of Serum, Toxoid and Vaccine into Muscle, Percutaneous Approach (ICD-10-PCS; 2017-07-28)
PROC: 3E0234Z Introduction of Serum, Toxoid and Vaccine into Muscle, Percutaneous Approach (ICD-10-PCS; 2017-07-28)
DX: A41.9 Sepsis, unspecified organism (principal); J96.00 Acute respiratory failure, unspecified whether with hypoxia or hypercapnia; J86.9 Pyothorax without fistula; E43 Unspecified severe protein-calorie malnutrition; J90 Pleural effusion, not elsewhere classified; J18.9 Pneumonia, unspecified organism; K25.4 Chronic or unspecified gastric ulcer with hemorrhage; F17.210 Nicotine dependence, cigarettes, uncomplicated; D50.0 Iron deficiency anemia secondary to blood loss (chronic); J44.0 Chronic obstructive pulmonary disease with (acute) lower respiratory infection; J44.1 Chronic obstructive pulmonary disease with (acute) exacerbation; E88.09 Other disorders of plasma-protein metabolism, not elsewhere classified; T39.395A Adverse effect of other nonsteroidal anti-inflammatory drugs [NSAID], initial encounter; Z23 Encounter for immunization; Z68.24 Body mass index [BMI] 24.0-24.9, adult
CPT/HCPCS: 36415; 36600; 71045; 71250; 76700; 76942; 80048; 80053; 80202; 80305; 81003; 82550; 82553; 82607; 82728; 82803; 82948; 83540; 83605; 83735; 83880; 84443; 84484; 85025; 85045; 85610; 85730; 86677; 86886; 86900; 86901; 86920; 87040; 87081; 87086; 90658; 90732; 93005; 94640; 96365; 96366; 96375; 97110; 97116; 97530; 99291; C9113; J0295; J0610; J0696; J1200; J1956; J2250; J3010; J3370; J3490; J7030; J7060; J7613; J7620; J7644; P9016; Q0092